=== PATIENT | male | born 1935 | race Two or more races ===

== ENCOUNTER 2018-12-30 15:20 | Outpatient (CLI) | payer OTHER | END 2018-12-30 15:25 | disposition home or self-care (01) | LOC: RAD 15:20 | DX: R05 Cough (principal) ==

== ENCOUNTER 2020-06-07 11:39 | Outpatient (CLI) | payer OTHER | END 2020-06-07 15:55 | disposition home or self-care (01) | LOC: PPH VACUNA 11:39 | PROVIDERS: ATTEND Emergency Medicine Pediatric Emergency Medicine | DX: Z23 Encounter for immunization (principal) ==

== ENCOUNTER → 2020-06-28 07:00 | Outpatient (CLI) | payer OTHER | END | disposition home or self-care (01) | LOC: PPH VACUNA 07:00 | PROVIDERS: ATTEND Emergency Medicine Pediatric Emergency Medicine | DX: Z23 Encounter for immunization (principal) ==

== ENCOUNTER 2021-02-20 08:00 | Outpatient (CLI) | payer OTHER | END 2021-02-20 08:30 | disposition home or self-care (01) | LOC: PPH VACUNA 08:00 | PROVIDERS: ATTEND Emergency Medicine Pediatric Emergency Medicine | DX: Z23 Encounter for immunization (principal) ==

== ENCOUNTER 2021-07-09 17:55 | Emergency (ER) | payer OTHER ==
[~2021-07-09] VITALS: Ht 180.3 cm; Wt 77.1 kg
[2021-07-09] MEDS ORDERED: ISOSORBIDE DINIT5 MG PO (18:04)
[2021-07-09] MEDS ORDERED: IRBESARTAN150 MG PO (18:05)
[2021-07-09] MEDS ORDERED: XARELTO2.5 MG PO (18:05)
[2021-07-09] MEDS ORDERED: ZETIA10 MG PO (18:05)
[2021-07-09] MEDS ORDERED: FENOFIBRATE50 MG PO (18:05)
[2021-07-09] MEDS ORDERED: TAMS0.4C PO (18:06)
[2021-07-09] MEDS ORDERED: CLONAZEPAM1 M1 PO (18:06)
[2021-07-09] MEDS ORDERED: LIPITOR40 MG PO (18:06)
== END 2021-07-09 20:49 | disposition left against medical advice (07) ==
LOC: ER 17:55 → EMR PED 17:55 → ER 19:45
DX: Z53.21 Procedure and treatment not carried out due to patient leaving prior to being seen by health care provider (principal)

== ENCOUNTER 2021-08-29 08:00 | Outpatient (CLI) | payer OTHER ==
[~2021-08-29 08:00] MED LIST: CLONAZEPAM1 M1 PO; FENOFIBRATE50 MG PO; IRBESARTAN150 MG PO; ISOSORBIDE DINIT5 MG PO; LIPITOR40 MG PO; TAMS0.4C PO; XARELTO2.5 MG PO; ZETIA10 MG PO
== END 2021-08-29 08:30 | disposition home or self-care (01) ==
LOC: PPH VACUNA 08:00
PROVIDERS: ATTEND Emergency Medicine Pediatric Emergency Medicine
DX: Z23 Encounter for immunization (principal)

== ENCOUNTER 2021-11-24 14:20 | Outpatient (CLI) | payer OTHER | END 2021-11-24 15:07 | disposition home or self-care (01) | LOC: ASH CLINIC 14:20 | PROVIDERS: ATTEND Plastic Surgery | DX: U07.1 COVID-19 (principal) ==

== ENCOUNTER 2022-11-08 14:04 | Inpatient (IN) | payer OTHER ==
[~2022-11-08] VITALS: Ht 180.3 cm; Wt 86.2 kg
[2022-11-13] MEDS ORDERED: ELIQUIS2.5 MG (10:47)
[2022-11-13] MEDS ORDERED: METOPROLOL SUCC25 MG (10:47)
[2022-11-13] MEDS ORDERED: ISOSORBIDE MONO30 M2 (10:48)
[2022-11-13] MEDS ORDERED: FOLIC ACID1 MG (10:48)
[2022-11-13] MEDS ORDERED: ZETIA10 MG PO (13:20)
[2022-11-13] MEDS ORDERED: ABANEU-SL TABL1 EACH SL (13:20)
[2022-11-13] MEDS ORDERED: METOPROLOL SUCC25 MG PO (13:20)
[2022-11-13] MEDS ORDERED: NORVASC2.5 M1 PO (13:20)
[2022-11-13] MEDS ORDERED: ISOSORBIDE MONO30 M2 PO (13:20)
[2022-11-13] MEDS ORDERED: FENOFIBRATE50 MG PO (13:20)
[2022-11-13] MEDS ORDERED: IRBESARTAN150 MG PO (13:20)
[2022-11-13] MEDS ORDERED: ELIQUIS2.5 MG PO (13:20)
[2022-11-13] MEDS ORDERED: ST. JOSEPH ASPI81 M2 PO (13:20)
[2022-11-13] MEDS ORDERED: MELATONIN10 M2 PO (13:20)
[2022-11-13] MEDS ORDERED: CLONAZEPAM1 MG PO (13:20)
[2022-11-13] MEDS ORDERED: LIPITOR40 MG PO (13:20)
[2022-11-13] MEDS ORDERED: TAMS0.4C PO (13:20)
[2022-11-13] MEDS ORDERED: FOLIC ACID1 MG PO (13:20)
== END 2022-11-13 18:18 | DRG 65 ==
LOC: ER 14:04 → SEC-K 15:46 → SURH 15:46
PROVIDERS: ADMIT Internal Medicine Geriatric Medicine; ATTEND Internal Medicine Geriatric Medicine
PROC: 4A12X4Z Monitoring of Cardiac Electrical Activity, External Approach (ICD-10-PCS; principal; 2022-11-08)
PROC: BW38YZZ Magnetic Resonance Imaging (MRI) of Head using Other Contrast (ICD-10-PCS; 2022-11-08)
PROC: BW28ZZZ Computerized Tomography (CT Scan) of Head (ICD-10-PCS; 2022-11-08)
PROC: BR39ZZZ Magnetic Resonance Imaging (MRI) of Lumbar Spine (ICD-10-PCS; 2022-11-08)
PROC: B24BZZZ Ultrasonography of Heart with Aorta (ICD-10-PCS; 2022-11-08)
PROC: BW21ZZZ Computerized Tomography (CT Scan) of Abdomen and Pelvis (ICD-10-PCS; 2022-11-08)
PROC: B345ZZZ Ultrasonography of Bilateral Common Carotid Arteries (ICD-10-PCS; 2022-11-09)
DX: I63.81 Other cerebral infarction due to occlusion or stenosis of small artery (principal); G81.91 Hemiplegia, unspecified affecting right dominant side; N17.9 Acute kidney failure, unspecified; I48.91 Unspecified atrial fibrillation; I25.10 Atherosclerotic heart disease of native coronary artery without angina pectoris; I11.9 Hypertensive heart disease without heart failure; I12.9 Hypertensive chronic kidney disease with stage 1 through stage 4 chronic kidney disease, or unspecified chronic kidney disease; N18.9 Chronic kidney disease, unspecified; I77.9 Disorder of arteries and arterioles, unspecified; N40.0 Benign prostatic hyperplasia without lower urinary tract symptoms
CPT/HCPCS: 70551; 72148

== ENCOUNTER 2024-05-01 09:43 | Inpatient (IN) | payer OTHER ==
[~2024-05-01] VITALS: Ht 177.8 cm; Wt 75.3 kg
[~2024-05-01 09:43] MED LIST changes: +ABANEU-SL TABL1 EACH SL; +CLONAZEPAM1 MG PO; +ELIQUIS2.5 MG; +ELIQUIS2.5 MG PO; +FOLIC ACID1 MG; +FOLIC ACID1 MG PO; +ISOSORBIDE MONO30 M2; +ISOSORBIDE MONO30 M2 PO; +MELATONIN10 M2 PO; +METOPROLOL SUCC25 MG; +METOPROLOL SUCC25 MG PO; +NORVASC2.5 M1 PO; +ST. JOSEPH ASPI81 M2 PO
[2024-05-01] MEDS ORDERED: 0.9 % SODIUM CHLORIDE 1,000 ML IV SCH ×2 (10:00→15:15)
[2024-05-01 10:32] LABS: HEMATOCRIT 36.8 % (39.0-48.0); HEMOGLOBIN 12.5 g/dL (13-16.00); MEAN CELL VOLUME 91.9 fL (80.0-100.00); MEAN CORPUSCULAR HEMOGLOBIN 31.2 pg (27.00-32.0); PLATELET COUNT 146 K/uL (150-450); RED BLOOD COUNT 4.01 M/uL (4.00-6.00); RED CELL DISTRIBUTION WIDTH 14.7 % (11.5-14.5)
[2024-05-01 10:58] LABS: CREATININE SERUM 1.79 mg/dL (0.70-1.30); GFR 35.93; POTASSIUM 4.61 mEq/L (3.5-5.1)
[2024-05-01] MEDS ORDERED: KETOROLAC TROMETHAMINE 30 MG VIAL IV NR (16:30)
[2024-05-01] MEDS ORDERED: ATORVASTATIN CALCIUM 40 MG TABLET PO SCH (17:00)
[2024-05-01] MEDS ORDERED: APIXABAN 2.5 MG TABLET PO SCH (17:00)
[2024-05-01 20:37] VITALS: BP 165/70; O2SAT 94
[2024-05-01] MEDS ORDERED: TAMSULOSIN HCL 0.4 MG CAP PO SCH (21:00)
[2024-05-01] MEDS ORDERED: CLONAZEPAM 0.5 MG TABLET PO SCH (21:00)
[2024-05-01] MEDS ORDERED: METOPROLOL SUCCINATE 25 MG TAB.SR.24H PO SCH (21:00)
[2024-05-02 02:46] VITALS: BP 143/80; O2SAT 99
[2024-05-02 07:36] LABS: HEMATOCRIT 36.2 % (39.0-48.0); HEMOGLOBIN 12.5 g/dL (13-16.00); MEAN CELL VOLUME 91.3 fL (80.0-100.00); MEAN CORPUSCULAR HEMOGLOBIN 31.6 pg (27.00-32.0); MEAN CORPUSCULAR HGB CONC 34.6 g/dl (32.0-36.0); RED BLOOD COUNT 3.97 M/uL (4.00-6.00); RED CELL DISTRIBUTION WIDTH 14.5 % (11.5-14.5)
[2024-05-02 08:25] LABS: PLATELET COUNT 128 K/uL (150-450)
[2024-05-02] MEDS ORDERED: EZETIMIBE 10 MG PO SCH (09:00)
[2024-05-02] MEDS ORDERED: FENOFIBRATE 54 MG PO SCH (09:00)
[2024-05-02] MEDS ORDERED: IRBESARTAN 150 MG TABLET PO SCH (09:00)
[2024-05-02] MEDS ORDERED: FOLIC ACID 1 MG TABLET PO SCH (09:00)
[2024-05-02] MEDS ORDERED: ISOSORBIDE MONONITRATE 30 MG TABLET PO SCH (09:00)
[2024-05-02] MEDS ORDERED: AMLODIPINE BESYLATE 5 MG TABLET PO SCH (09:00)
[2024-05-02] MEDS ORDERED: Cyanocobalamin/Mecobalamin 1 TAB.SL SL SCH (09:00)
[2024-05-02 09:02] LABS: ALBUMIN 3.5 gm/dL (3.4-5.0); BILIRUBIN TOTAL 1.46 mg/dL (0.3-1.2); CALCIUM 9.2 mg/dL (8.5-10.1); CREATININE SERUM 1.65 mg/dL (0.70-1.30); GFR 39.48; GLOBULINA 2.8 G/DL (2.4-3.5); MAGNESIUM 1.8 mg/dL (1.8-2.4); PHOSPHOROUS 2.6 mg/dL (2.5-4.9); POTASSIUM 4.65 mEq/L (3.5-5.1); TOTAL PROTEIN 6.3 gm/dL (6.4-8.2); TSH 0.506 uIU/mL (0.358-3.74)
[2024-05-02 10:08] VITALS: BP 168/52; O2SAT 96
[2024-05-02 19:40] VITALS: BP 185/75
[2024-05-02] MEDS ORDERED: TAMSULOSIN HCL 0.4 MG CAP PO SCH (21:00)
[2024-05-03] MEDS ORDERED: IRBESARTAN 150 MG TABLET PO SCH (06:00)
[2024-05-03] MEDS ORDERED: ISOSORBIDE MONONITRATE 30 MG TABLET PO SCH (06:00)
[2024-05-03] MEDS ORDERED: AMLODIPINE BESYLATE 5 MG TABLET PO SCH (06:00)
[2024-05-03 08:00] VITALS: BP 125/62; O2SAT 97
[2024-05-03] MEDS ORDERED: VITAMIN B COMPLEX/LYSINE 1 ML ML PO SCH (12:20)
[2024-05-03 19:18] VITALS: BP 181/83
[2024-05-03] MEDS ORDERED: MELATONIN 5 MG TABLET PO SCH (21:00)
[2024-05-03] MEDS ORDERED: QUETIAPINE FUMARATE 25 MG TABLET PO SCH (21:00)
[2024-05-03] MEDS ORDERED: CLONAZEPAM 1 MG TABLET PO SCH (21:00)
[2024-05-04 09:21] VITALS: BP 138/69; O2SAT 94
[2024-05-04] MEDS ORDERED: POLYETHYLENE GLYCOL 3350 17 GM BLIST.PACK PO STA (10:15)
[2024-05-04 17:54] LABS: HEMATOCRIT 31.8 % (39.0-48.0); HEMOGLOBIN 10.9 g/dL (13-16.00); MEAN CELL VOLUME 91.5 fL (80.0-100.00); MEAN CORPUSCULAR HEMOGLOBIN 31.5 pg (27.00-32.0); MEAN CORPUSCULAR HGB CONC 34.4 g/dl (32.0-36.0); RED BLOOD COUNT 3.47 M/uL (4.00-6.00); RED CELL DISTRIBUTION WIDTH 14.6 % (11.5-14.5)
[2024-05-04 18:03] LABS: PLATELET COUNT 117 K/uL (150-450)
[2024-05-04 18:24] LABS: CALCIUM 8.8 mg/dL (8.5-10.1); CREATININE SERUM 1.96 mg/dL (0.70-1.30); GFR 32.36; MAGNESIUM 1.8 mg/dL (1.8-2.4); PHOSPHOROUS 3.2 mg/dL (2.5-4.9); POTASSIUM 4.58 mEq/L (3.5-5.1)
[2024-05-04 18:28] VITALS: BP 172/91
[2024-05-04 19:36] LABS: MANUAL PLATELET COUNT 180
[2024-05-04] MEDS ORDERED: POLYETHYLENE GLYCOL 3350 17 GM BLIST.PACK PO SCH (21:00)
[2024-05-04] MEDS ORDERED: TRAZODONE HCL 50 MG TABLET PO SCH (21:00)
[2024-05-05 02:00] VITALS: BP 130/75; O2SAT 95
[2024-05-05 08:07] VITALS: BP 127/96
[2024-05-05] MEDS ORDERED: CARBIDOPA/LEVODOPA 25/100 UDTAB PO SCH (09:00)
[2024-05-05] MEDS ORDERED: AMLODIPINE BESYL5 MG PO (13:47)
[2024-05-05] MEDS ORDERED: ZETIA10 MG PO (13:47)
[2024-05-05] MEDS ORDERED: ABANEU-SL TABL1 EACH SL (13:47)
[2024-05-05] MEDS ORDERED: TRAZODONE HCL50 MG PO (13:47)
[2024-05-05] MEDS ORDERED: ISOSORBIDE MONO30 M2 PO (13:47)
[2024-05-05] MEDS ORDERED: IRBESARTAN150 MG PO (13:47)
[2024-05-05] MEDS ORDERED: POM (MEDICAMENTO EN PO (13:47)
[2024-05-05] MEDS ORDERED: LIPITOR40 MG PO (13:47)
[2024-05-05] MEDS ORDERED: FOLIC ACID1 MG PO (13:47)
[2024-05-05] MEDS ORDERED: ELIQUIS2.5 MG PO (13:47)
[2024-05-05] MEDS ORDERED: CARBIDOPA-LEVO1 EA10 PO (13:47)
[2024-05-05] MEDS ORDERED: TAMS0.4C PO (13:47)
[2024-05-05] MEDS ORDERED: METOPROLOL SUCC25 MG PO (13:47)
[2024-05-05] MEDS ORDERED: CLONAZEPAM1 MG PO (13:47)
== END 2024-05-05 17:28 | disposition home or self-care (01) | DRG 57 ==
LOC: ER 09:43 → MEDJ 15:45
PROVIDERS: Emergency Medicine; ADMIT Internal Medicine Geriatric Medicine; ATTEND Internal Medicine Geriatric Medicine
PROC: B020ZZZ Computerized Tomography (CT Scan) of Brain (ICD-10-PCS; 2024-05-01)
PROC: BB24ZZZ Computerized Tomography (CT Scan) of Bilateral Lungs (ICD-10-PCS; 2024-05-01)
PROC: B030ZZZ Magnetic Resonance Imaging (MRI) of Brain (ICD-10-PCS; principal; 2024-05-02)
PROC: BW2GZZZ Computerized Tomography (CT Scan) of Pelvic Region (ICD-10-PCS; 2024-05-02)
PROC: B246ZZZ Ultrasonography of Right and Left Heart (ICD-10-PCS; 2024-05-03)
DX: G20.C Parkinsonism, unspecified (principal); F02.82 Dementia in other diseases classified elsewhere, unspecified severity, with psychotic disturbance; J90 Pleural effusion, not elsewhere classified; R55 Syncope and collapse; G31.83 Neurocognitive disorder with Lewy bodies; M25.552 Pain in left hip; M25.551 Pain in right hip; I10 Essential (primary) hypertension; Z87.891 Personal history of nicotine dependence
CPT/HCPCS: 70551